=== PATIENT | male | born 1930 | race Caucasian/White ===

== ENCOUNTER 2021-07-09 11:42 | Inpatient (IN) ==
[2021-07-09] MEDS: D5 1/2 NS 1,000 ML 1,000 ML IV SCH (12:30)
[2021-07-09 13:54] LABS: BASOPHILS # (AUTO) 0.2 X10^3/uL (0.0-0.1); BASOPHILS % (AUTO) 1.3 % (0.2-1.0); EOSINOPHILS # (AUTO) 0.9 x10^3/uL (0.0-0.2); EOSINOPHILS % (AUTO) 6.1 % (0.9-2.9); HEMATOCRIT 46.6 % (42.0-54.0); HEMOGLOBIN 15.6 g/dL (13.5-18.0); LYMPHOCYTES # (AUTO) 1.9 X10^3/uL (1.3-2.9); LYMPHOCYTES % (AUTO) 13.1 % (21.0-51.0); MEAN CORPUSCULAR HEMOGLOBIN 27.2 pg (27.0-34.0); MEAN CORPUSCULAR HGB CONC 33.4 g/dL (33.0-35.0); MEAN CORPUSCULAR VOLUME 81.3 fL (80.0-100.0); MONOCYTES # (AUTO) 0.9 x10^3/uL (0.3-0.8); MONOCYTES % (AUTO) 6.4 % (0.0-13.0); NEUTROPHILS # (AUTO) 10.6 x10^3/uL (2.2-4.8); NEUTROPHILS % (AUTO) 73.1 % (42.0-75.0); RED BLOOD COUNT 5.73 X10^6/uL (4.7-6.0); RED CELL DISTRIBUTION WIDTH 17.2 % (11.6-16.5); WHITE BLOOD COUNT 14.4 X10^3/uL (3.6-10.0)
[2021-07-09 14:11] LABS: ALANINE AMINOTRANSFERASE 84 Units/L (12-78); ALBUMIN 2.3 g/dL (3.4-5.0); ALKALINE PHOSPHATASE 145 Units/L (46-116); ASPARTATE AMINO TRANSFERASE 39 Units/L (15-37); BLOOD UREA NITROGEN 19 mg/dL (7-18); CALCIUM 9.2 mg/dL (8.5-10.1); CARBON DIOXIDE 26.1 mmol/L (21-32); CHLORIDE 105 mmol/L (98-107); COR CA(FOR HYPOALB) 10.6 mg/dL (8.5-10.1); CREATININE 1.59 mg/dL (0.70-1.30); SODIUM 139 mmol/L (136-145); TOTAL PROTEIN 6.5 g/dL (6.4-8.2); eGFR NON BLACK RACES 44 (>60)
[2021-07-09 14:34] VITALS: BMI 25.1
--- NOTE | 2021-07-09 15:56 | RAD ---
HISTORYPain blockageSTUDYAbdomen series with PA chest three viewsCOMPARISONChest 03/11/2019FINDINGSUpright chest: Heart size normal with lungs clear of active process. Retrocardiac density probable hiatal hernia. No evidence for pneumoperitoneum.Abdomen: Supine and upright views demonstrate no definite obstruction, focal ileus or pneumoperitoneum. The retroperitoneal structures are obscured. No mass formation or ascites or pathologic calcification demonstrated.IMPRESSIONNo acute findings. Retrocardiac opacity most likely hiatal hernia; however, follow-up chest exam recommended to evaluate for possible segmental left lower lobe infiltrate.Electronically signed by: ANURAG COLON (Jul 09, 2021 15:55:15)
[2021-07-09] MEDS ORDERED: FORTAZ or TAZICEF VIAL INJ 1 G in NS 100 ML IV 100 ML IV SCH (18:00)
--- NOTE | 2021-07-09 18:21 | CT ---
HISTORYLEFT LUNG INFILTRATE, RETROCARDIAC DENSITY ON CXRSTUDYCHEST W/O CONCOMPARISONCT abdomen pelvis same dayTECHNIQUEMultiple axial images of the chest were obtained from the thoracic inlet to the upper abdomen without the administration of IV contrast. 3D reconstructions utilizing axial MIPS imaging was performed and reviewed. Dose reduction techniques including Automated Exposure Control (AEC) and adjustment of mA and kV were utilized.FINDINGSNo pneumothorax or effusion. No acute airspace disease. Hypoventilatory changes in the lungs.Mild cardiomegaly. Coronary and aortic calcifications. 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 Moderate hiatal hernia.No acute osseous abnormality. Multilevel degenerative changes in the visualized spine.Limited visualized portions of the upper abdomen demonstrate no acute process.IMPRESSIONNo acute findings in the chest.Moderate hiatal hernia.Electronically signed by: CAIO TRUJILLO (Jul 09, 2021 18:20:54)
--- NOTE | 2021-07-09 18:25 | DR.H&P ---
H&P History & Physical for Day of: H&P Date: 07/09/21 Chief Complaint Chief Complaint: Abdominal pain Allergies Allergies Allergy/AdvReac Type Severity Reaction Status Date / Time Penicillins Allergy Verified 07/09/21 13:12 History of Present Illness History of Present Illness: This is a 89-year-old white male well known to me. He has been having increasing constipation over the last few weeks and months. It has gotten worse over the last 2 weeks. I have given him milk of magnesia with Dulcolax tablets to help relieve his constipation. 2 days ago he was given magnesium citrate in which he had a good bowel movement afterwards. I saw him yesterday and he was eating and drinking some and his abdomen was soft and nontender at that time. But since yesterday he has woken up this morning with abdominal distention and pain and tightness. He is not able to drink or eat at this time. Overall he feels very bad and weak he reports. Auscultation of his abdomen reveals low to no bowel sounds. I have ordered him a soapsuds enema. Also a abdominal series as well. The abdominal series is back and shows no intra-abdominal problems or signs of constipation but it does however show a left lower lung infiltrate consistent with probable pneumonia. Is also noted I have recently treated him for 2 COPD exacerbation's with Levaquin and by mouth prednisone taper packs for the last 20 days. He reports he got slightly better for a few days and his cough and chest congestion returned as well. He is also noted to be hypoxic upon entry to the hospital with SPO2 of 92% on room air. 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 Past Surgical History Surgical History: Tonsillectomy Family History Family Medical History: Cancer, MS and Sudden Cardiac Social History Does patient currently use any type of tobacco product: No Have you used tobacco products in the last 12 months: No Type of Tobacco Use: None Does any household member use tobacco: No Alcohol Use: None Drug Use: None Medications Home Medications: Penicillins Allergy (Verified 07/09/21 13:12) CONTINUE taking the following medications aspirin [Aspir-81] 81 mg PO DAILY 07/09/21 [History] cholecalciferol (vitamin D3) [Vitamin D3] 50 mcg PO DAILY 07/09/21 [History] clopidogrel [Plavix] 75 mg PO DAILY 07/09/21 [History] fexofenadine 180 mg PO DAILY 07/09/21 [History] latanoprost [Xalatan] 1 drp OPHTHALMIC (EYE) HS 07/09/21 [History] levothyroxine [Synthroid] 112 mcg PO DAILY 07/09/21 [History] linaclotide [Linzess] 145 mcg PO DAILY 07/09/21 [History] montelukast [Singulair] 10 mg PO HS 07/09/21 [History] prednisone 5 mg PO DAILY 07/09/21 [History] rosuvastatin [Crestor] 20 mg PO HS 07/09/21 [History] Labs Result Diagrams: 07/09/21 13:45 07/09/21 13:45 Labs: Laboratory WBC 14.4 X10^3/uL (3.6-10.0) H 07/09/21 13:45 RBC 5.73 X10^6/uL (4.7-6.0) 07/09/21 13:45 Hgb 15.6 g/dL (13.5-18.0) 07/09/21 13:45 Hct 46.6 % (42.0-54.0) 07/09/21 13:45 MCV 81.3 fL (80.0-100.0) 07/09/21 13:45 MCH 27.2 pg (27.0-34.0) 07/09/21 13:45 MCHC 33.4 g/dL (33.0-35.0) 07/09/21 13:45 RDW 17.2 % (11.6-16.5) H 07/09/21 13:45 Plt Count 181 X10^3/uL (150.0-450.0) 07/09/21 13:45 MPV 8.0 fL (7.4-11.0) 07/09/21 13:45 Neut % (Auto) 73.1 % (42.0-75.0) 07/09/21 13:45 Lymph % (Auto) 13.1 % (21.0-51.0) L 07/09/21 13:45 [place] % (Auto) 6.4 % (0.0-13.0) 07/09/21 13:45 Eos % (Auto) 6.1 % (0.9-2.9) H 07/09/21 13:45 Baso % (Auto) 1.3 % (0.2-1.0) H 07/09/21 13:45 Neut # (Auto) 10.6 x10^3/uL (2.2-4.8) H 07/09/21 13:45 Lymph # (Auto) 1.9 X10^3/uL (1.3-2.9) 07/09/21 13:45 [place] # (Auto) 0.9 x10^3/uL (0.3-0.8) H 07/09/21 13:45 Eos # (Auto) 0.9 x10^3/uL (0.0-0.2) H 07/09/21 13:45 Baso # (Auto) 0.2 X10^3/uL (0.0-0.1) H 07/09/21 13:45 Absolute Nucleated RBC 0.1 /100WBC 07/09/21 13:45 Sodium 139 mmol/L (136-145) 07/09/21 13:45 Corrected Sodium TNP 07/09/21 13:45 Potassium 4.2 mmol/L (3.5-5.1) 07/09/21 13:45 Chloride 105 mmol/L (98-107) 07/09/21 13:45 Carbon Dioxide 26.1 mmol/L (21-32) 07/09/21 13:45 BUN 19 mg/dL (7-18) H 07/09/21 13:45 Creatinine 1.59 mg/dL (0.70-1.30) H 07/09/21 13:45 Est GFR (MDRD) Af Amer 53 (>60) L 07/09/21 13:45 Est GFR (MDRD) Non-Af 44 (>60) L 07/09/21 13:45 Glucose 107 mg/dL (65-99) H 07/09/21 13:45 Calcium 9.2 mg/dL (8.5-10.1) 07/09/21 13:45 Corrected Calcium 10.6 mg/dL (8.5-10.1) H 07/09/21 13:45 Total Bilirubin 1.30 mg/dL (0.2-1.0) H 07/09/21 13:45 AST 39 Units/L (15-37) H 07/09/21 13:45 ALT 84 Units/L (12-78) H 07/09/21 13:45 Alkaline Phosphatase 145 Units/L (46-116) H 07/09/21 13:45 Total Protein 6.5 g/dL (6.4-8.2) 07/09/21 13:45 Albumin 2.3 g/dL (3.4-5.0) L 07/09/21 13:45 Globulin 4.2 g/dL (2.5-4.5) 07/09/21 13:45 Albumin/Globulin Ratio 0.5 Ratio (1.1-2.1) L 07/09/21 13:45 SARS-CoV-2 (PCR) Negative (NEGATIVE) 07/09/21 13:20 Review of Systems Constitutional: Weakness and Other (Anorexia) Eyes: No Symptoms Reported ENT: Nose Discharge and Nose Congestion Respiratory: Cough, SOB with Excertion and Sputum Cardiovascular: No Symptoms Reported Gastrointestinal: Constipation Genitourinary: No Symptoms Reported Musculoskeletal: No Symptoms Reported Skin: No Symptoms Reported Neurological: No Symptoms Reported Physical Exam Vital Signs: Temperature 99.2 F Pulse Rate [Bilateral Radial] 97 Respiratory Rate 18 Blood Pressure [Right Arm] 123/74 O2 Sat by Pulse Oximetry 92 Oriented: Normal, Time, Person and Place Eyes: Normal Ear: Normal Nose: Normal Throat: Normal Respiratory: LLL Diminished and LLL Rhonchi Cardiovascular: Normal : Normal Auscultation: Bowel Sounds: Decreased Palpation: Other (Abdomen is distended with diffuse tympany and generalized tenderness to palpation.) Tenderness: Diffuse Skin: Decreased Turgur and Bruising Musculoskeletal: Normal Psychiatric: Normal Mood Description: Calm Affect: Normal Speech Pattern: Clear and Appropriate Assessment/Plan (1) Abdominal pain: Status: Acute Plan: Soapsuds enema to see if getting his bowels to move will relieve his abdominal distention and pain. I suspect that the patient is most likely impacted with stool. (2) Constipation, chronic: Status: Acute Plan: Continue Linzess 145 mcg by mouth daily. Consider increasing the dose tomorrow. (3) Impaction of colon: Status: Acute Plan: Soapsuds enema 1. May repeat tomorrow morning if his bowels do not start moving on his own. (4) Community acquired pneumonia: Status: Acute Plan: I started him on protocol on the patient. I put him on IV Fortaz 1 g IV every 8 hours as well as Vibramycin 100 mg IV every 12 hours. (5) COPD with asthma: Status: Acute Plan: Xopenex nebs. I may consider adding DuoNeb's tomorrow morning and stop the Xopenex if his O2 sat remains low. I will add Symbicort 160/4.5 2 puffs twice a day. (6) Hypothyroidism: Status: Acute Plan: Continue on levothyroxine 112 mcg daily. 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 Also continue Crestor 20 mg by mouth daily at bedtime. Review H&P Reviewed: Yes Patient was examined?: Yes
[2021-07-09] MEDS ORDERED: XOPENEX 1.25 MG/3 ML NEBULE NEB ONE (19:55)
--- NOTE | 2021-07-09 20:17 | CT ---
HISTORYABD PAIN, DISCOMFORTSTUDYABDOMEN/PELVIS WITH CONCOMPARISONTECHNIQUEMultiple axial images of the abdomen and pelvis were obtained from the lung bases to the pubic symphysis after the administration of IV contrast. Dose reduction techniques including Automated Exposure Control (AEC) and adjustment of mA and kV were utilized.FINDINGSThere is bronchial wall thickening. There is dependent basilar atelectasis or scarring. Heart size is normal. There is ectasia the ascending aorta at 4.3 centimeter diameter. There appears to be a pulmonary embolus in the right lower lobe. There is a low-density lesion near the gallbladder fossa which is probably a benign cyst. The gallbladder, pancreas, spleen, adrenal glands are normal. There is some mild cortical thinning in the kidneys but no mass, stone, or hydronephrosis. There is moderate systemic atherosclerosis. There is a large hiatal hernia. Small bowel loops are normal. Appendix is normal. There is fairly severe diverticulosis of the colon especially distally. There is diverticulitis in the descending colon but no abscess or free air. There is a extension of the urinary bladder into the left inguinal canal. There are fat containing inguinal hernias bilaterally. There is a loop of small bowel extending into the right inguinal hernia. Prostate gland is enlarged at 6.7 centimeter in diameter there is an exophytic cephalad extension into the gallbladder which measures up to 2.1 x 3.4 centimeters. There is no worrisome bone marrow lesion.IMPRESSION1. There is acute DIVERTICULITIS in the descending colon with no abscess or free air. There is fairly severe diffuse diverticulosis in the distal colon.2. Large hiatal hernia.3. Massive prostate hypertrophy with exophytic protrudes extending cephalad into the bladder. Consider referral to Urology.4. There appears to be PULMONARY EMBOLUS in the right lower lobe.Electronically signed by: Danial Keenan (Jul 09, 2021 20:16:49)
[2021-07-09] MEDS: XOPENEX 1.25 MG/3 ML NEBULE NEB SCH (21:34)
[2021-07-09] MEDS: XALATAN OP SCH (22:15)
[2021-07-09] MEDS: VIBRAMYCIN 100 MG in D5W 250 ML IV 250 ML IV SCH (22:16)
[2021-07-09] MEDS: ROBITUSSIN DM PO SCH (22:20)
[2021-07-09] MEDS: SINGULAIR TAB 10 MG PO SCH (22:20)
[2021-07-09] MEDS: CRESTOR TAB 10 MG PO SCH (22:20)
[2021-07-10] MEDS: FORTAZ or TAZICEF VIAL INJ 1 G in NS 100 ML IV 100 ML IV SCH ×5 (00:12→22:41)
[2021-07-10 00:38] LABS: BILIRUBIN,URINE NEGATIVE (NEGATIVE); BLOOD/HEMOGLOBIN,URINE 1+ (NEGATIVE); GLUCOSE, URINE NEGATIVE (NEGATIVE); KETONES,URINE NEGATIVE (NEGATIVE); LEUKOCYTE ESTERASE ,URINE 1+ (NEGATIVE); NITRITES,URINE NEGATIVE (NEGATIVE); PROTEIN,URINE 2+ (NEGATIVE); UROBILINOGEN,URINE 2+ (NORMAL)
[2021-07-10 00:40] LABS: APPEARANCE,URINE CLEAR (CLEAR); COLOR,URINE DARK YELLOW (YELLOW)
[2021-07-10 00:48] LABS: BACTERIA,URINE 1+ /HPF (NEGATIVE); RBC,URINE 0-2 /HPF (0-3); SQUAMOUS EPITHELIAL CELL,UR RARE /HPF (NEGATIVE)
[2021-07-10] MEDS: D5 1/2 NS 1,000 ML 1,000 ML IV SCH ×3 (04:39→18:18)
[2021-07-10 05:27] LABS: BASOPHILS # (AUTO) 0.1 X10^3/uL (0.0-0.1); BASOPHILS % (AUTO) 0.6 % (0.2-1.0); EOSINOPHILS # (AUTO) 0.9 x10^3/uL (0.0-0.2); MONOCYTES # (AUTO) 0.9 x10^3/uL (0.3-0.8); NEUTROPHILS # (AUTO) 9.9 x10^3/uL (2.2-4.8)
[2021-07-10 05:33] LABS: EOSINOPHILS % (AUTO) 7.2 % (0.9-2.9); HEMATOCRIT 38.4 % (42.0-54.0); HEMOGLOBIN 13.1 g/dL (13.5-18.0); LYMPHOCYTES # (AUTO) 1.2 X10^3/uL (1.3-2.9); LYMPHOCYTES % (AUTO) 9.2 % (21.0-51.0); MEAN CORPUSCULAR HEMOGLOBIN 27.5 pg (27.0-34.0); MEAN CORPUSCULAR HGB CONC 34.1 g/dL (33.0-35.0); MEAN CORPUSCULAR VOLUME 80.5 fL (80.0-100.0); RED BLOOD COUNT 4.77 X10^6/uL (4.7-6.0); RED CELL DISTRIBUTION WIDTH 16.9 % (11.6-16.5)
[2021-07-10 05:39] LABS: ALANINE AMINOTRANSFERASE 65 Units/L (12-78); ALBUMIN 1.9 g/dL (3.4-5.0); ALKALINE PHOSPHATASE 120 Units/L (46-116); ASPARTATE AMINO TRANSFERASE 37 Units/L (15-37); BLOOD UREA NITROGEN 15 mg/dL (7-18); CALCIUM 8.3 mg/dL (8.5-10.1); CARBON DIOXIDE 26.4 mmol/L (21-32); CHLORIDE 104 mmol/L (98-107); CREATININE 1.31 mg/dL (0.70-1.30); SODIUM 137 mmol/L (136-145); TOTAL PROTEIN 5.3 g/dL (6.4-8.2); eGFR NON BLACK RACES 55 (>60)
[2021-07-10] MEDS: XOPENEX 1.25 MG/3 ML NEBULE NEB SCH ×3 (06:06→21:42)
--- NOTE | 2021-07-10 07:32 | RAD ---
HISTORYPNEUMONIASTUDYCHEST, 1 VIEWCOMPARISONNone availableFINDINGSTrachea is midline. Heart size is borderline enlarged. There is increased prominence of the pulmonary arteries and upper lobe vascular congestion consistent with combination of pulmonary arterial and venous hypertension. Patchy consolidation within the retrocardiac left lower lobe represents subsegmental atelectasis or developing infiltrate. No pleural effusion or pneumothorax.IMPRESSIONPatchy consolidation within the retrocardiac left lower lobe represents developing infiltrate or subsegmental atelectasis.Borderline cardiomegaly with radiographic evidence suggestive of pulmonary arterial and venous hypertension.Electronically signed by: PRABHAKAR CAVANAUGH (Jul 10, 2021 07:32:14)
[2021-07-10] MEDS ORDERED: LINZESS PO SCH (09:00)
[2021-07-10] MEDS ORDERED: ASPIRIN EC 81 MG PO SCH (09:00)
[2021-07-10] MEDS ORDERED: [UNRECOGNIZED DRUG - OTHER] PO SCH (09:00)
[2021-07-10] MEDS ORDERED: SYNTHROID 112 mcg TAB PO SCH (09:00)
[2021-07-10] MEDS ORDERED: CHOLECALCIFEROL PO SCH (09:00)
[2021-07-10] MEDS: VIBRAMYCIN 100 MG in D5W 250 ML IV 250 ML IV SCH ×2 (09:54→23:54)
[2021-07-10] MEDS: ROBITUSSIN DM PO SCH ×4 (09:54→21:04)
[2021-07-10] MEDS: COLACE CAP 100 MG PO SCH ×2 (10:06→21:04)
[2021-07-10] MEDS: FLAGYL IV PREMIX 500 MG BAG 500 MG/100 ML BAG IV SCH ×2 (10:06→18:17)
[2021-07-10] MEDS: CIPRO IV 400 MG PREMIX* 400 MG/200 ML IV.SOLN. IV SCH ×2 (10:06→21:02)
[2021-07-10] MEDS: VITAMIN D3 25 mcg (1,000 UNITS) PO SCH (10:07)
[2021-07-10] MEDS: PREDNISONE TAB 5 MG PO SCH (10:07)
[2021-07-10] MEDS: PLAVIX PO SCH (10:07)
--- NOTE | 2021-07-10 11:11 | CT ---
HISTORYabnormal chest xraySTUDYCTA [id number]/29/2022TECHNIQUEMultip le axial images of the chest were obtained from the thoracic inlet to the upper abdomen after the administration of IV contrast. 3D reconstructions utilizing axial MIPS imaging was performed and reviewed. Dose reduction techniques including Automated Exposure Control (AEC) and adjustment of mA and kV were utilized.FINDINGSMain pulmonary arteries normal caliber. There is pulmonary thromboembolic disease noted within the proximal right middle and lower lobe segmental arteries extending into the system branches of the right middle and lower lobes. No thromboembolic disease identified within the left pulmonary arterial circulation.Thyroid gland is normal. Heart size is normal. Moderate calcified atherosclerotic disease of coronary arteries. Calcification of the mitral and aortic valves. Borderline enlarged bilateral hilar and right paratracheal lymph nodes.Moderate-sized hiatal hernia.An approximate 5 mm pulmonary nodule within right upper lobe on axial image 30. Peripheral, dependent reticulation is noted within the right and to lesser degree left lower lobes. There is passive atelectasis of the left lower lobe secondary to hiatal hernia. No pleural effusion or pneumothorax.Imaging of the upper abdomen demonstrates no acute inflammatory process.No acute osseous abnormality.IMPRESSIONRight middle and lower lobe segmental and subsegmental pulmonary thromboemboli. No right ventricular heart strain or pulmonary arterial dilatation.Moderate-sized sliding hiatal hernia with fluid distention of the herniated stomach.Borderline enlarged paratracheal and bilateral hilar lymph nodes.5 mm pulmonary nodule within the right upper lobeRecommend correlation with prior exams if available to confirm stability. Otherwise, if patient is at low risk for lung cancer, no further follow up needed; if patient is at high risk for lung cancer, optional followup CT at 12 months.Mild increased reticulation within the periphery of the right and left lower lobes likely represents sequela of chronic bronchiolitis and/or aspiration.Additional incidental, nonacute findings as described aboveElectronically signed by: PRABHAKAR CAVANAUGH (Jul 10, 2021 11:11:44)
--- NOTE | 2021-07-10 12:19 | PCM.PROG ---
Progress Note Progress Note for Day of Date of Exam: 07/10/21 Subjective Subjective: The patient is alert and awake this morning. He seems to be in good spirits today. He had supper last night and tolerated it well. After the soapsuds enema yesterday they removed a lot of hard small stool. He was feeling better afterwards. His abdominal distention has gone down and his abdomen is less tight and painful. He does continue to have left lower quadrant pain on palpation. CT yesterday show that he had acute diverticulitis as well in that region. The CT in the abdomen/pelvis scan yesterday showed what looked to be like a possible coronary embolism in the right lower lung. So I ordered a CTA of the lungs this morning and it did confirm a right middle lobe and right lower lobe segmental and subsegmental pulmonary emboli. I will start him on Eliquis 5 mg by mouth twice a day for that today. Past Medical Family Social History Past Med/Fam/Surg Hx: No changes since H&P Allergies: Allergies Penicillins Allergy (Verified 07/09/21 13:12) Review of Systems ROS: No change since H&P Vital Signs and I&O's Vital Signs: Temperature 98.3 F Pulse Rate [Bilateral Radial] 50 Pulse Rate 103 Respiratory Rate 18 Blood Pressure [Right Arm] 138/79 O2 Sat by Pulse Oximetry 96 Intake and Output: Intake & Output 07/08/21 07/09/21 07/10/21 07/11/21 11:59 11:59 11:59 11:59 Intake Total 225 / 225 Output Total 275 / 275 Balance -50 / -50 Physical Exam Oriented: Normal, Time, Person and Place Eyes: Normal Ear: Normal Nose: Normal Throat: Normal Respiratory: Left and Rhonchi Cardiovascular: Normal : Normal Auscultation: Bowel Sounds: Decreased Tenderness: LLQ and Other (Decreased tympany and abdominal distention.) Skin: Decreased Turgur and Bruising Musculoskeletal: Normal Psychiatric: Normal Mood Description: Calm Affect: Normal Speech Pattern: Clear and Appropriate Laboratory and Diagnostics Result Diagrams: 07/10/21 04:50 07/10/21 04:50 Labs: 07/09/21 18:16 Sputum - Expectorated Sputum Sputum Culture - Preliminary 07/09/21 18:16 Sputum - Expectorated Sputum - Final Laboratory WBC 13.0 X10^3/uL (3.6-10.0) H 07/10/21 04:50 RBC 4.77 X10^6/uL (4.7-6.0) 07/10/21 04:50 Hgb 13.1 g/dL (13.5-18.0) L D 07/10/21 04:50 Hct 38.4 % (42.0-54.0) L 07/10/21 04:50 MCV 80.5 fL (80.0-100.0) 07/10/21 04:50 MCH 27.5 pg (27.0-34.0) 07/10/21 04:50 MCHC 34.1 g/dL (33.0-35.0) 07/10/21 04:50 RDW 16.9 % (11.6-16.5) H 07/10/21 04:50 Plt Count 152 X10^3/uL (150.0-450.0) 07/10/21 04:50 MPV 8.0 fL (7.4-11.0) 07/10/21 04:50 Neut % (Auto) 76.0 % (42.0-75.0) H 07/10/21 04:50 Lymph % (Auto) 9.2 % (21.0-51.0) L 07/10/21 04:50 [place] % (Auto) 7.0 % (0.0-13.0) 07/10/21 04:50 Eos % (Auto) 7.2 % (0.9-2.9) H 07/10/21 04:50 Baso % (Auto) 0.6 % (0.2-1.0) 07/10/21 04:50 Neut # (Auto) 9.9 x10^3/uL (2.2-4.8) H 07/10/21 04:50 Lymph # (Auto) 1.2 X10^3/uL (1.3-2.9) L 07/10/21 04:50 [place] # (Auto) 0.9 x10^3/uL (0.3-0.8) H 07/10/21 04:50 Eos # (Auto) 0.9 x10^3/uL (0.0-0.2) H 07/10/21 04:50 Baso # (Auto) 0.1 X10^3/uL (0.0-0.1) 07/10/21 04:50 Absolute Nucleated RBC 0.1 /100WBC 07/10/21 04:50 Sodium 137 mmol/L (136-145) 07/10/21 04:50 Corrected Sodium TNP 07/10/21 04:50 Potassium 3.6 mmol/L (3.5-5.1) 07/10/21 04:50 Chloride 104 mmol/L (98-107) 07/10/21 04:50 Carbon Dioxide 26.4 mmol/L (21-32) 07/10/21 04:50 BUN 15 mg/dL (7-18) 07/10/21 04:50 Creatinine 1.31 mg/dL (0.70-1.30) H 07/10/21 04:50 Est GFR (MDRD) Af Amer > 60 (>60) 07/10/21 04:50 Est GFR (MDRD) Non-Af 55 (>60) L 07/10/21 04:50 Glucose 105 mg/dL (65-99) H 07/10/21 04:50 Calcium 8.3 mg/dL (8.5-10.1) L 07/10/21 04:50 Corrected Calcium 10.0 mg/dL (8.5-10.1) 07/10/21 04:50 Total Bilirubin 1.10 mg/dL (0.2-1.0) H 07/10/21 04:50 AST 37 Units/L (15-37) 07/10/21 04:50 ALT 65 Units/L (12-78) 07/10/21 04:50 Alkaline Phosphatase 120 Units/L (46-116) H 07/10/21 04:50 Total Protein 5.3 g/dL (6.4-8.2) L 07/10/21 04:50 Albumin 1.9 g/dL (3.4-5.0) L 07/10/21 04:50 Globulin 3.4 g/dL (2.5-4.5) 07/10/21 04:50 Albumin/Globulin Ratio 0.6 Ratio (1.1-2.1) L 07/10/21 04:50 TSH 3rd Generation 0.066 uIU/mL (0.358-3.74) L 07/09/21 13:45 Specimen Type Clean catch urine 07/10/21 00:09 Urine Color Dark yellow (YELLOW) 07/10/21 00:09 Urine Appearance Clear (CLEAR) 07/10/21 00:09 Urine pH 7.0 (5.0 - 8.0) 07/10/21 00:09 Ur Specific [place] 1.005 (1.000-1.030) 07/10/21 00:09 Urine Protein 2+ (NEGATIVE) 07/10/21 00:09 Urine Glucose (UA) Negative (NEGATIVE) 07/10/21 00:09 Urine Ketones Negative (NEGATIVE) 07/10/21 00:09 Urine Blood 1+ (NEGATIVE) 07/10/21 00:09 Urine Nitrite Negative (NEGATIVE) 07/10/21 00:09 Urine Bilirubin Negative (NEGATIVE) 07/10/21 00:09 Urine Urobilinogen 2+ (NORMAL) 07/10/21 00:09 Ur Leukocyte Esterase 1+ (NEGATIVE) 07/10/21 00:09 Urine RBC 0-2 /HPF (0-3) 07/10/21 00:09 Urine WBC 0-2 /HPF (0-5) 07/10/21 00:09 Ur Squamous Epith Cells Rare /HPF (NEGATIVE) 07/10/21 00:09 Urine Bacteria 1+ /HPF (NEGATIVE) 07/10/21 00:09 Ur Culture Indicated? No/not indicated 07/10/21 00:09 SARS-CoV-2 (PCR) Negative (NEGATIVE) 07/09/21 13:20 Radiology Reviewed: Yes Plan (1) Diverticulitis large intestine w/o perforation or abscess w/o bleeding: Status: Acute Plan: CT of the abdomen and pelvis yesterday revealed that he has acute diverticulitis of the descending colon. I will be adding IV Cipro and IV Flagyl today. (2) Abdominal pain: Status: Acute Plan: Soapsuds enema to see if getting his bowels to move will relieve his abdominal distention and pain. I suspect that the patient is most likely impacted with stool. (3) Constipation, chronic: Status: Acute Plan: Continue Linzess 145 mcg by mouth daily. I will add Colace 100 mg by mouth twice a day. (4) Impaction of colon: Status: Acute Plan: Soapsuds enema 1. May repeat tomorrow morning if his bowels do not start moving on his own. (5) Community acquired pneumonia: Status: Acute Plan: I started him on protocol on the patient. I put him on IV Fortaz 1 g IV every 8 hours as well as Vibramycin 100 mg IV every 12 hours. (6) COPD with asthma: Status: Acute Plan: Xopenex nebs. I may consider adding DuoNeb's tomorrow morning and stop the Xopenex if his O2 sat remains low. I will add Symbicort 160/4.5 2 puffs twice a day. (7) Hypothyroidism: Status: Acute Plan: Continue on levothyroxine 112 mcg daily. 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 Also continue Crestor 20 mg by mouth daily at bedtime. (9) Pulmonary embolism on right: Status: Acute Plan: *Eliquis 5 mg by mouth twice a day. (10) Iatrogenic hyperthyroidism: Status: Acute Plan: We will decrease the patient's Synthroid dose down to 88 mcg daily from 112 mcg daily. (11) Prostate cancer: Status: Acute Plan: CT scan showed the prostate was enlarged and had exophytic growths on it towards the bladder and towards the cephalad position. 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 The patient has had a history of arteriovenous malformation bleeding in the past. I will go ahead and DC his baby aspirin today since he is already taking Plavix. (13) Dehydration, mild: Status: Acute Narrative Support Text: Creatinine is down from 1.59 yesterday to 1.31 this morning. Patient is dehydration is overall improving. Plan: The patient was noted to have a slightly elevated BUN and creatinine yesterday on admission. I started him on D5 one half normal saline at 75 cc an hour. Overall is improved morning with a normalized BUN and creatinine now of 1.31.
[2021-07-10] MEDS: ELIQUIS PO SCH ×2 (12:50→21:05)
[2021-07-10] MEDS ORDERED: POTASSIUM CHL 40 MEQ/NS 0.45% 500 ML IV PRN (18:16)
[2021-07-10] MEDS ORDERED: POTASSIUM CHL 60 MEQ/NS 0.45% 500 ML IV PRN (18:16)
[2021-07-10] MEDS ORDERED: KLOR-CON PO PRN (18:16)
[2021-07-10] MEDS ORDERED: MICRO K EXTEN CAP 10 MEQ PO PRN (18:16)
[2021-07-10] MEDS ORDERED: K-RIDER 10 MEQ/NS 100 ML 10 MEQ/100 ML BAG IV PRN (18:16)
[2021-07-10] MEDS ORDERED: POTASSIUM CHLORIDE LIQ 20 MEQ UDC PO PRN (18:16)
[2021-07-10] MEDS: SINGULAIR TAB 10 MG PO SCH (21:04)
[2021-07-10] MEDS: CRESTOR TAB 10 MG PO SCH (21:04)
[2021-07-10] MEDS: XALATAN OP SCH (21:05)
[2021-07-11] MEDS: FLAGYL IV PREMIX 500 MG BAG 500 MG/100 ML BAG IV SCH ×3 (02:31→17:11)
[2021-07-11] MEDS: D5 1/2 NS 1,000 ML 1,000 ML IV SCH ×2 (03:48→17:11)
[2021-07-11 05:05] LABS: BASOPHILS # (AUTO) 0.1 X10^3/uL (0.0-0.1); BASOPHILS % (AUTO) 0.4 % (0.2-1.0); EOSINOPHILS # (AUTO) 0.5 x10^3/uL (0.0-0.2); EOSINOPHILS % (AUTO) 3.5 % (0.9-2.9); HEMATOCRIT 36.3 % (42.0-54.0); HEMOGLOBIN 12.1 g/dL (13.5-18.0); LYMPHOCYTES # (AUTO) 1.2 X10^3/uL (1.3-2.9); LYMPHOCYTES % (AUTO) 8.7 % (21.0-51.0); MEAN CORPUSCULAR HGB CONC 33.3 g/dL (33.0-35.0); MEAN CORPUSCULAR VOLUME 80.9 fL (80.0-100.0); MEAN PLATELET VOLUME 8.1 fL (7.4-11.0); MONOCYTES # (AUTO) 0.8 x10^3/uL (0.3-0.8); MONOCYTES % (AUTO) 6.2 % (0.0-13.0); NEUTROPHILS # (AUTO) 10.7 x10^3/uL (2.2-4.8); NEUTROPHILS % (AUTO) 81.2 % (42.0-75.0); RED BLOOD COUNT 4.49 X10^6/uL (4.7-6.0); RED CELL DISTRIBUTION WIDTH 16.4 % (11.6-16.5); WHITE BLOOD COUNT 13.2 X10^3/uL (3.6-10.0)
[2021-07-11 05:07] LABS: ALANINE AMINOTRANSFERASE 54 Units/L (12-78); ALBUMIN 1.7 g/dL (3.4-5.0); ALKALINE PHOSPHATASE 113 Units/L (46-116); ASPARTATE AMINO TRANSFERASE 33 Units/L (15-37); BLOOD UREA NITROGEN 13 mg/dL (7-18); CALCIUM 8.2 mg/dL (8.5-10.1); CARBON DIOXIDE 24.2 mmol/L (21-32); CHLORIDE 105 mmol/L (98-107); MAGNESIUM 1.6 mg/dL (1.7-2.9); SODIUM 136 mmol/L (136-145); TOTAL PROTEIN 5.2 g/dL (6.4-8.2); eGFR NON BLACK RACES 55 (>60)
[2021-07-11] MEDS: XOPENEX 1.25 MG/3 ML NEBULE NEB SCH ×3 (06:00→20:13)
[2021-07-11] MEDS: FORTAZ or TAZICEF VIAL INJ 1 G in NS 100 ML IV 100 ML IV SCH ×3 (06:01→22:40)
[2021-07-11] MEDS: SYNTHROID 88 mcg TAB PO SCH (06:01)
[2021-07-11] MEDS: K-DUR TAB 20 MEQ PO PRN (06:02)
--- NOTE | 2021-07-11 06:37 | RAD ---
HISTORYPNEUMONIASTUDYCHEST, 1 VIEWCOMPARISONNone availableFINDINGSStable examination demonstrate coarsened interstitium with more prominent appearance hiatal hernia. Subsegmental atelectasis within left lung base. No new opacity, pleural effusion or pneumothoraxIMPRESSIONStable examination without acute cardiopulmonary abnormality.Moderate-sized hiatal hernia.Electronically signed by: PRABHAKAR CAVANAUGH (July 11, 2021 06:36:30)
[2021-07-11] MEDS ORDERED: SYNTHROID 112 mcg TAB PO SCH (09:00)
[2021-07-11] MEDS: CIPRO IV 400 MG PREMIX* 400 MG/200 ML IV.SOLN. IV SCH ×2 (09:24→21:06)
[2021-07-11] MEDS: VITAMIN D3 25 mcg (1,000 UNITS) PO SCH (09:25)
[2021-07-11] MEDS: VIBRAMYCIN 100 MG in D5W 250 ML IV 250 ML IV SCH ×2 (09:25→23:37)
[2021-07-11] MEDS: PLAVIX PO SCH (09:26)
[2021-07-11] MEDS: LINZESS PO SCH (09:26)
[2021-07-11] MEDS: PREDNISONE TAB 5 MG PO SCH (09:26)
[2021-07-11] MEDS: ROBITUSSIN DM PO SCH ×4 (09:26→21:07)
[2021-07-11] MEDS: COLACE CAP 100 MG PO SCH ×2 (09:27→21:06)
[2021-07-11] MEDS: ELIQUIS PO SCH (09:27)
[2021-07-11] MEDS: SPECTAZOLE TOP SCH ×2 (11:16→21:08)
[2021-07-11] MEDS: PriLOSEC PO SCH ×2 (11:16→21:07)
[2021-07-11] MEDS: MAGNESIUM SULFATE 1 GRAM/100 mL PREMIX 1 G/100 ML BAG IV PRN (18:20)
--- NOTE | 2021-07-11 20:43 | PCM.PROG ---
Progress Note Progress Note for Day of Date of Exam: 07/11/21 Subjective Subjective: The patient is alert and awake this morning. He seems to be in good spirits today. He has no new complaints this morning. His breathing is overall improved he reports and he is still having some left lower quadrant abdominal pain but is improved as well. He is having bowel movements on his own now without enemas. This afternoon he did develop a nosebleed so we stopped his anticoagulation because of that. We had enough packing his nose because the bleeding would not stop. We will reevaluate the patient for this in the morning. It is noted he has low magnesium and potassium this morning as well. Past Medical Family Social History Past Med/Fam/Surg Hx: No changes since H&P Allergies: Allergies Penicillins Allergy (Verified 07/09/21 13:12) Review of Systems ROS: No change since H&P Vital Signs and I&O's Vital Signs: Temperature 97.3 F Pulse Rate [Bilateral Radial] 66 Pulse Rate 89 Respiratory Rate 20 Blood Pressure [Right Arm] 118/68 O2 Sat by Pulse Oximetry 94 Intake and Output: Intake & Output 07/09/21 07/10/21 07/11/21 07/12/21 11:59 11:59 11:59 11:59 Intake Total 225 / 225 2019 / 2019 1290 / 1290 Output Total 275 / 275 250 / 250 775 / 775 Balance -50 / -50 1770 / 1770 515 / 515 Physical Exam Oriented: Normal, Time, Person and Place Eyes: Normal Ear: Normal Nose: Normal Throat: Normal Respiratory: Left and Rhonchi Cardiovascular: Normal : Normal Auscultation: Bowel Sounds: Decreased Tenderness: LLQ and Other (Decreased tympany and abdominal distention.) Skin: Decreased Turgur and Bruising Musculoskeletal: Normal Psychiatric: Normal Mood Description: Calm Affect: Normal Speech Pattern: Clear and Appropriate Laboratory and Diagnostics Result Diagrams: 07/11/21 03:59 07/11/21 03:59 Labs: 07/09/21 18:31 Blood Blood Culture - Preliminary 07/09/21 18:27 Blood Blood Culture - Preliminary 07/09/21 18:16 Sputum - Expectorated Sputum Sputum Culture - Preliminary 07/09/21 18:16 Sputum - Expectorated Sputum - Final Laboratory WBC 13.2 X10^3/uL (3.6-10.0) H 07/11/21 03:59 RBC 4.49 X10^6/uL (4.7-6.0) L 07/11/21 03:59 Hgb 12.1 g/dL (13.5-18.0) L 07/11/21 03:59 Hct 36.3 % (42.0-54.0) L 07/11/21 03:59 MCV 80.9 fL (80.0-100.0) 07/11/21 03:59 MCH 27.0 pg (27.0-34.0) 07/11/21 03:59 MCHC 33.3 g/dL (33.0-35.0) 07/11/21 03:59 RDW 16.4 % (11.6-16.5) 07/11/21 03:59 Plt Count 154 X10^3/uL (150.0-450.0) 07/11/21 03:59 MPV 8.1 fL (7.4-11.0) 07/11/21 03:59 Neut % (Auto) 81.2 % (42.0-75.0) H 07/11/21 03:59 Lymph % (Auto) 8.7 % (21.0-51.0) L 07/11/21 03:59 [place] % (Auto) 6.2 % (0.0-13.0) 07/11/21 03:59 Eos % (Auto) 3.5 % (0.9-2.9) H 07/11/21 03:59 Baso % (Auto) 0.4 % (0.2-1.0) 07/11/21 03:59 Neut # (Auto) 10.7 x10^3/uL (2.2-4.8) H 07/11/21 03:59 Lymph # (Auto) 1.2 X10^3/uL (1.3-2.9) L 07/11/21 03:59 [place] # (Auto) 0.8 x10^3/uL (0.3-0.8) 07/11/21 03:59 Eos # (Auto) 0.5 x10^3/uL (0.0-0.2) H 07/11/21 03:59 Baso # (Auto) 0.1 X10^3/uL (0.0-0.1) 07/11/21 03:59 Absolute Nucleated RBC 0.0 /100WBC 07/11/21 03:59 Sodium 136 mmol/L (136-145) 07/11/21 03:59 Corrected Sodium TNP 07/11/21 03:59 Potassium 3.4 mmol/L (3.5-5.1) L 07/11/21 03:59 Chloride 105 mmol/L (98-107) 07/11/21 03:59 Carbon Dioxide 24.2 mmol/L (21-32) 07/11/21 03:59 BUN 13 mg/dL (7-18) 07/11/21 03:59 Creatinine 1.30 mg/dL (0.70-1.30) 07/11/21 03:59 Est GFR (MDRD) Af Amer > 60 (>60) 07/11/21 03:59 Est GFR (MDRD) Non-Af 55 (>60) L 07/11/21 03:59 Glucose 106 mg/dL (65-99) H 07/11/21 03:59 Calcium 8.2 mg/dL (8.5-10.1) L 07/11/21 03:59 Corrected Calcium 10.0 mg/dL (8.5-10.1) 07/11/21 03:59 Magnesium 1.6 mg/dL (1.7-2.9) L 07/11/21 03:59 Total Bilirubin 0.90 mg/dL (0.2-1.0) 07/11/21 03:59 AST 33 Units/L (15-37) 07/11/21 03:59 ALT 54 Units/L (12-78) 07/11/21 03:59 Alkaline Phosphatase 113 Units/L (46-116) 07/11/21 03:59 Total Protein 5.2 g/dL (6.4-8.2) L 07/11/21 03:59 Albumin 1.7 g/dL (3.4-5.0) L 07/11/21 03:59 Globulin 3.5 g/dL (2.5-4.5) 07/11/21 03:59 Albumin/Globulin Ratio 0.5 Ratio (1.1-2.1) L 07/11/21 03:59 TSH 3rd Generation 0.066 uIU/mL (0.358-3.74) L 07/09/21 13:45 Specimen Type Clean catch urine 07/10/21 00:09 Urine Color Dark yellow (YELLOW) 07/10/21 00:09 Urine Appearance Clear (CLEAR) 07/10/21 00:09 Urine pH 7.0 (5.0 - 8.0) 07/10/21 00:09 Ur Specific [place] 1.005 (1.000-1.030) 07/10/21 00:09 Urine Protein 2+ (NEGATIVE) 07/10/21 00:09 Urine Glucose (UA) Negative (NEGATIVE) 07/10/21 00:09 Urine Ketones Negative (NEGATIVE) 07/10/21 00:09 Urine Blood 1+ (NEGATIVE) 07/10/21 00:09 Urine Nitrite Negative (NEGATIVE) 07/10/21 00:09 Urine Bilirubin Negative (NEGATIVE) 07/10/21 00:09 Urine Urobilinogen 2+ (NORMAL) 07/10/21 00:09 Ur Leukocyte Esterase 1+ (NEGATIVE) 07/10/21 00:09 Urine RBC 0-2 /HPF (0-3) 07/10/21 00:09 Urine WBC 0-2 /HPF (0-5) 07/10/21 00:09 Ur Squamous Epith Cells Rare /HPF (NEGATIVE) 07/10/21 00:09 Urine Bacteria 1+ /HPF (NEGATIVE) 07/10/21 00:09 Ur Culture Indicated? No/not indicated 07/10/21 00:09 Stl C. diff Tox B Gene Negative (NEGATIVE) 07/11/21 18:00 Stl C. diff [id number] Presumptive negative (NEGATIVE) 07/11/21 18:00 SARS-CoV-2 (PCR) Negative (NEGATIVE) 07/09/21 13:20 Plan (1) Hypomagnesemia: Status: Acute Plan: Replace with magnesium. (2) Hypokalemia: Status: Acute Plan: Potassium replacement protocol. (3) Diverticulitis large intestine w/o perforation or abscess w/o bleeding: Status: Acute Plan: CT of the abdomen and pelvis yesterday revealed that he has acute diverticulitis of the descending colon. I will be adding IV Cipro and IV Flagyl today. (4) Abdominal pain: Status: Acute Plan: Soapsuds enema to see if getting his bowels to move will relieve his abdominal distention and pain. I suspect that the patient is most likely impacted with stool. (5) Constipation, chronic: Status: Acute Plan: Continue Linzess 145 mcg by mouth daily. I will add Colace 100 mg by mouth twice a day. (6) Impaction of colon: Status: Acute Plan: Soapsuds enema 1. May repeat tomorrow morning if his bowels do not start moving on his own. (7) Community acquired pneumonia: Status: Acute Plan: I started him on protocol on the patient. I put him on IV Fortaz 1 g IV every 8 hours as well as Vibramycin 100 mg IV every 12 hours. (8) COPD with asthma: Status: Acute Plan: Xopenex nebs. I may consider adding DuoNeb's tomorrow morning and stop the Xopenex if his O2 sat remains low. I will add Symbicort 160/4.5 2 puffs twice a day. (9) Hypothyroidism: Status: Acute Plan: Continue on levothyroxine 112 mcg daily. 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 Also continue Crestor 20 mg by mouth daily at bedtime. (11) Pulmonary embolism on right: Status: Acute Plan: *Eliquis 5 mg by mouth twice a day. 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 (13) Prostate cancer: Status: Acute Plan: CT scan showed the prostate was enlarged and had exophytic growths on it towards the bladder and towards the cephalad position. 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 The patient has had a history of arteriovenous malformation bleeding in the past. I will go ahead and DC his baby aspirin today since he is already taking Plavix. (15) Dehydration, mild: Status: Resolved Plan: Change IV fluid to KVO this morning. The patient's BUN and creatinine have normalized this morning.
[2021-07-11] MEDS: SINGULAIR TAB 10 MG PO SCH (21:07)
[2021-07-11] MEDS: CRESTOR TAB 10 MG PO SCH (21:07)
[2021-07-11] MEDS: XALATAN OP SCH (21:08)
[2021-07-12] MEDS: D5 1/2 NS 1,000 ML 1,000 ML IV SCH ×2 (01:25→05:18)
[2021-07-12] MEDS: FLAGYL IV PREMIX 500 MG BAG 500 MG/100 ML BAG IV SCH ×3 (01:30→17:00)
[2021-07-12] MEDS: SPECTAZOLE TOP SCH ×3 (03:01→21:21)
[2021-07-12 04:49] LABS: BASOPHILS % (AUTO) 0.4 % (0.2-1.0); EOSINOPHILS # (AUTO) 0.6 x10^3/uL (0.0-0.2); EOSINOPHILS % (AUTO) 5.3 % (0.9-2.9); HEMATOCRIT 37.1 % (42.0-54.0); HEMOGLOBIN 12.6 g/dL (13.5-18.0); LYMPHOCYTES # (AUTO) 1.4 X10^3/uL (1.3-2.9); LYMPHOCYTES % (AUTO) 12.5 % (21.0-51.0); MEAN CORPUSCULAR HEMOGLOBIN 27.4 pg (27.0-34.0); MEAN CORPUSCULAR HGB CONC 33.9 g/dL (33.0-35.0); MEAN CORPUSCULAR VOLUME 80.8 fL (80.0-100.0); MEAN PLATELET VOLUME 7.9 fL (7.4-11.0); MONOCYTES # (AUTO) 0.7 x10^3/uL (0.3-0.8); MONOCYTES % (AUTO) 6.6 % (0.0-13.0); NEUTROPHILS # (AUTO) 8.2 x10^3/uL (2.2-4.8); NEUTROPHILS % (AUTO) 75.2 % (42.0-75.0); RED BLOOD COUNT 4.59 X10^6/uL (4.7-6.0); RED CELL DISTRIBUTION WIDTH 16.9 % (11.6-16.5); WHITE BLOOD COUNT 10.9 X10^3/uL (3.6-10.0)
[2021-07-12 04:58] LABS: ALANINE AMINOTRANSFERASE 41 Units/L (12-78); ALBUMIN 1.7 g/dL (3.4-5.0); ALKALINE PHOSPHATASE 106 Units/L (46-116); ASPARTATE AMINO TRANSFERASE 24 Units/L (15-37); BLOOD UREA NITROGEN 9 mg/dL (7-18); CALCIUM 8.4 mg/dL (8.5-10.1); CARBON DIOXIDE 25.4 mmol/L (21-32); CHLORIDE 107 mmol/L (98-107); COR CA(FOR HYPOALB) 10.2 mg/dL (8.5-10.1); CREATININE 1.29 mg/dL (0.70-1.30); MAGNESIUM 1.8 mg/dL (1.7-2.9); SODIUM 140 mmol/L (136-145); TOTAL PROTEIN 5.3 g/dL (6.4-8.2); eGFR NON BLACK RACES 56 (>60)
[2021-07-12] MEDS: XOPENEX 1.25 MG/3 ML NEBULE NEB SCH ×3 (05:05→21:20)
[2021-07-12] MEDS: FORTAZ or TAZICEF VIAL INJ 1 G in NS 100 ML IV 100 ML IV SCH ×3 (05:44→21:17)
[2021-07-12] MEDS: SYNTHROID 88 mcg TAB PO SCH (05:44)
--- NOTE | 2021-07-12 06:27 | RAD ---
HISTORYPneumoniaSTUDYChest AP [id number]/01/2022 chest x-ray, CTA chest 07/10/2021FINDINGSHeart size is normal. Patrizia are normal. Lung bruner are free of acute infiltrates. No pleural effusions are identified. There is a hiatal hernia present. Bony thorax is unremarkable.IMPRESSIONNo acute infiltratesHiatal herniaElectronically signed by: CAIO TRUJILLO (July 12, 2021 06:26:13)
[2021-07-12] MEDS: LINZESS PO SCH (08:11)
[2021-07-12] MEDS: CIPRO IV 400 MG PREMIX* 400 MG/200 ML IV.SOLN. IV SCH ×2 (08:11→21:16)
[2021-07-12] MEDS: PREDNISONE TAB 5 MG PO SCH (08:11)
[2021-07-12] MEDS: COLACE CAP 100 MG PO SCH ×2 (08:11→21:19)
[2021-07-12] MEDS: VITAMIN D3 25 mcg (1,000 UNITS) PO SCH (08:12)
[2021-07-12] MEDS: ROBITUSSIN DM PO SCH ×3 (08:12→21:21)
[2021-07-12] MEDS: PriLOSEC PO SCH ×2 (08:12→21:18)
[2021-07-12] MEDS: ASPIRIN 81 MG CHEWTAB PO SCH (08:30)
[2021-07-12] MEDS: PLAVIX PO SCH (08:30)
[2021-07-12] MEDS: VIBRAMYCIN 100 MG in D5W 250 ML IV 250 ML IV SCH (09:30)
--- NOTE | 2021-07-12 15:20 | PCM.PROG ---
Progress Note Progress Note for Day of Date of Exam: 07/12/21 Subjective Subjective: The patient is alert and awake this morning. He reports he is doing better this morning. He does still have some left lower quadrant pain which is still improving overall. He is having some loose bowel movements now but no constipation anymore. His nosebleed he had yesterday has resolved they unpacked it last night. I will start him back on his Plavix and aspirin 81 mg today. Plan we will discharge home tomorrow morning. Past Medical Family Social History Past Med/Fam/Surg Hx: No changes since H&P Allergies: Allergies Penicillins Allergy (Verified 07/09/21 13:12) Review of Systems ROS: No change since H&P Vital Signs and I&O's Vital Signs: Temperature 98.8 F Pulse Rate [Right Brachial] 90 Pulse Rate [Bilateral Radial] 70 Pulse Rate 90 Respiratory Rate 20 Blood Pressure [Right Arm] 122/57 O2 Sat by Pulse Oximetry 95 Intake and Output: Intake & Output 07/10/21 07/11/21 07/12/21 07/13/21 11:59 11:59 11:59 11:59 Intake Total 225 / 225 2019 Output Total 275 / 275 250 / 250 2275 / 2275 Balance -50 / -50 1770 / 1770 -285 / -285 Physical Exam Oriented: Normal, Time, Person and Place Eyes: Normal Ear: Normal Nose: Normal Throat: Normal Respiratory: Normal Cardiovascular: Normal : Normal Auscultation: Bowel Sounds: Decreased Tenderness: LLQ and Other (Decreased tympany and abdominal distention.) Skin: Decreased Turgur and Bruising Musculoskeletal: Normal Psychiatric: Normal Mood Description: Calm Affect: Normal Speech Pattern: Clear and Appropriate Laboratory and Diagnostics Result Diagrams: 07/12/21 04:00 07/12/21 04:00 Labs: 07/09/21 18:31 Blood Blood Culture - Preliminary 07/09/21 18:27 Blood Blood Culture - Preliminary 07/09/21 18:16 Sputum - Expectorated Sputum Sputum Culture - Preliminary 07/09/21 18:16 Sputum - Expectorated Sputum - Final Laboratory WBC 10.9 X10^3/uL (3.6-10.0) H 07/12/21 04:00 RBC 4.59 X10^6/uL (4.7-6.0) L 07/12/21 04:00 Hgb 12.6 g/dL (13.5-18.0) L 07/12/21 04:00 Hct 37.1 % (42.0-54.0) L 07/12/21 04:00 MCV 80.8 fL (80.0-100.0) 07/12/21 04:00 MCH 27.4 pg (27.0-34.0) 07/12/21 04:00 MCHC 33.9 g/dL (33.0-35.0) 07/12/21 04:00 RDW 16.9 % (11.6-16.5) H 07/12/21 04:00 Plt Count 160 X10^3/uL (150.0-450.0) 07/12/21 04:00 MPV 7.9 fL (7.4-11.0) 07/12/21 04:00 Neut % (Auto) 75.2 % (42.0-75.0) H 07/12/21 04:00 Lymph % (Auto) 12.5 % (21.0-51.0) L 07/12/21 04:00 [place] % (Auto) 6.6 % (0.0-13.0) 07/12/21 04:00 Eos % (Auto) 5.3 % (0.9-2.9) H 07/12/21 04:00 Baso % (Auto) 0.4 % (0.2-1.0) 07/12/21 04:00 Neut # (Auto) 8.2 x10^3/uL (2.2-4.8) H 07/12/21 04:00 Lymph # (Auto) 1.4 X10^3/uL (1.3-2.9) 07/12/21 04:00 [place] # (Auto) 0.7 x10^3/uL (0.3-0.8) 07/12/21 04:00 Eos # (Auto) 0.6 x10^3/uL (0.0-0.2) H 07/12/21 04:00 Baso # (Auto) 0.0 X10^3/uL (0.0-0.1) 07/12/21 04:00 Absolute Nucleated RBC 0.0 /100WBC 07/12/21 04:00 Sodium 140 mmol/L (136-145) 07/12/21 04:00 Corrected Sodium TNP 07/12/21 04:00 Potassium 3.3 mmol/L (3.5-5.1) L 07/12/21 04:00 Chloride 107 mmol/L (98-107) 07/12/21 04:00 Carbon Dioxide 25.4 mmol/L (21-32) 07/12/21 04:00 BUN 9 mg/dL (7-18) 07/12/21 04:00 Creatinine 1.29 mg/dL (0.70-1.30) 07/12/21 04:00 Est GFR (MDRD) Af Amer > 60 (>60) 07/12/21 04:00 Est GFR (MDRD) Non-Af 56 (>60) L 07/12/21 04:00 Glucose 92 mg/dL (65-99) 07/12/21 04:00 Calcium 8.4 mg/dL (8.5-10.1) L 07/12/21 04:00 Corrected Calcium 10.2 mg/dL (8.5-10.1) H 07/12/21 04:00 Magnesium 1.8 mg/dL (1.7-2.9) 07/12/21 04:00 Total Bilirubin 0.60 mg/dL (0.2-1.0) 07/12/21 04:00 AST 24 Units/L (15-37) 07/12/21 04:00 ALT 41 Units/L (12-78) 07/12/21 04:00 Alkaline Phosphatase 106 Units/L (46-116) 07/12/21 04:00 Total Protein 5.3 g/dL (6.4-8.2) L 07/12/21 04:00 Albumin 1.7 g/dL (3.4-5.0) L 07/12/21 04:00 Globulin 3.6 g/dL (2.5-4.5) 07/12/21 04:00 Albumin/Globulin Ratio 0.5 Ratio (1.1-2.1) L 07/12/21 04:00 TSH 3rd Generation 0.066 uIU/mL (0.358-3.74) L 07/09/21 13:45 Specimen Type Clean catch urine 07/10/21 00:09 Urine Color Dark yellow (YELLOW) 07/10/21 00:09 Urine Appearance Clear (CLEAR) 07/10/21 00:09 Urine pH 7.0 (5.0 - 8.0) 07/10/21 00:09 Ur Specific [place] 1.005 (1.000-1.030) 07/10/21 00:09 Urine Protein 2+ (NEGATIVE) 07/10/21 00:09 Urine Glucose (UA) Negative (NEGATIVE) 07/10/21 00:09 Urine Ketones Negative (NEGATIVE) 07/10/21 00:09 Urine Blood 1+ (NEGATIVE) 07/10/21 00:09 Urine Nitrite Negative (NEGATIVE) 07/10/21 00:09 Urine Bilirubin Negative (NEGATIVE) 07/10/21 00:09 Urine Urobilinogen 2+ (NORMAL) 07/10/21 00:09 Ur Leukocyte Esterase 1+ (NEGATIVE) 07/10/21 00:09 Urine RBC 0-2 /HPF (0-3) 07/10/21 00:09 Urine WBC 0-2 /HPF (0-5) 07/10/21 00:09 Ur Squamous Epith Cells Rare /HPF (NEGATIVE) 07/10/21 00:09 Urine Bacteria 1+ /HPF (NEGATIVE) 07/10/21 00:09 Ur Culture Indicated? No/not indicated 07/10/21 00:09 Stl C. diff Tox B Gene Negative (NEGATIVE) 07/11/21 18:00 Stl C. diff [id number] Presumptive negative (NEGATIVE) 07/11/21 18:00 SARS-CoV-2 (PCR) Negative (NEGATIVE) 07/09/21 13:20 Plan (1) Hypomagnesemia: Status: Acute Plan: Replace with magnesium. (2) Hypokalemia: Status: Acute Narrative Support Text: Potassium is slightly low this morning we will replace it. Plan: Potassium replacement protocol. (3) Diverticulitis large intestine w/o perforation or abscess w/o bleeding: Status: Acute Plan: CT of the abdomen and pelvis yesterday revealed that he has acute diverticulitis of the descending colon. I will be adding IV Cipro and IV Flagyl today. (4) Abdominal pain: Status: Acute Plan: Soapsuds enema to see if getting his bowels to move will relieve his abdominal distention and pain. I suspect that the patient is most likely impacted with stool. (5) Constipation, chronic: Status: Acute Plan: Continue Linzess 290 mcg by mouth daily. Continue Colace 100 mg by mouth twice a day. (6) Impaction of colon: Status: Resolved Plan: Soapsuds enema 1. May repeat tomorrow morning if his bowels do not start moving on his own. (7) Community acquired pneumonia: Status: Resolved Plan: I started him on protocol on the patient. I put him on IV Fortaz 1 g IV every 8 hours. I am stopping his doxycycline IV today. His chest x-ray this morning shows that his infiltrates have cleared. (8) COPD with asthma: Status: Acute Plan: Xopenex nebs. I may consider adding DuoNeb's tomorrow morning and stop the Xopenex if his O2 sat remains low. I will add Symbicort 160/4.5 2 puffs twice a day. (9) Hypothyroidism: Status: Acute Plan: Continue on levothyroxine 112 mcg daily. 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 Also continue Crestor 20 mg by mouth daily at bedtime. (11) Pulmonary embolism on right: Status: Acute Plan: *Eliquis 5 mg by mouth twice a day. 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 (13) Prostate cancer: Status: Acute Plan: CT scan showed the prostate was enlarged and had exophytic growths on it towards the bladder and towards the cephalad position. 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 The patient has had a history of arteriovenous malformation bleeding in the past. I will go ahead and DC his baby aspirin today since he is already taking Plavix. (15) Dehydration, mild: Status: Resolved Plan: Change IV fluid to KVO this morning. The patient's BUN and creatinine have normalized this morning.
[2021-07-12] MEDS: SINGULAIR TAB 10 MG PO SCH (21:19)
[2021-07-12] MEDS: CRESTOR TAB 10 MG PO SCH (21:20)
[2021-07-12] MEDS: XALATAN OP SCH (21:22)
[2021-07-13] MEDS: FLAGYL IV PREMIX 500 MG BAG 500 MG/100 ML BAG IV SCH ×2 (02:00→08:41)
[2021-07-13 04:55] LABS: BASOPHILS # (AUTO) 0.1 X10^3/uL (0.0-0.1); BASOPHILS % (AUTO) 0.5 % (0.2-1.0); EOSINOPHILS # (AUTO) 0.6 x10^3/uL (0.0-0.2); EOSINOPHILS % (AUTO) 5.4 % (0.9-2.9); HEMATOCRIT 37.7 % (42.0-54.0); HEMOGLOBIN 12.5 g/dL (13.5-18.0); LYMPHOCYTES # (AUTO) 1.2 X10^3/uL (1.3-2.9); LYMPHOCYTES % (AUTO) 10.5 % (21.0-51.0); MEAN CORPUSCULAR HEMOGLOBIN 26.8 pg (27.0-34.0); MEAN CORPUSCULAR HGB CONC 33.2 g/dL (33.0-35.0); MEAN CORPUSCULAR VOLUME 80.5 fL (80.0-100.0); MONOCYTES # (AUTO) 0.7 x10^3/uL (0.3-0.8); MONOCYTES % (AUTO) 6.2 % (0.0-13.0); NEUTROPHILS % (AUTO) 77.4 % (42.0-75.0); RED BLOOD COUNT 4.68 X10^6/uL (4.7-6.0); RED CELL DISTRIBUTION WIDTH 16.9 % (11.6-16.5); WHITE BLOOD COUNT 11.6 X10^3/uL (3.6-10.0)
[2021-07-13] MEDS: XOPENEX 1.25 MG/3 ML NEBULE NEB SCH (05:06)
[2021-07-13 05:07] LABS: ALANINE AMINOTRANSFERASE 31 Units/L (12-78); ALBUMIN 1.8 g/dL (3.4-5.0); ALKALINE PHOSPHATASE 97 Units/L (46-116); ASPARTATE AMINO TRANSFERASE 22 Units/L (15-37); BLOOD UREA NITROGEN 8 mg/dL (7-18); CALCIUM 8.4 mg/dL (8.5-10.1); CARBON DIOXIDE 23.2 mmol/L (21-32); CHLORIDE 107 mmol/L (98-107); COR CA(FOR HYPOALB) 10.2 mg/dL (8.5-10.1); CREATININE 1.21 mg/dL (0.70-1.30); MAGNESIUM 1.7 mg/dL (1.7-2.9); SODIUM 138 mmol/L (136-145); TOTAL PROTEIN 5.4 g/dL (6.4-8.2); eGFR NON BLACK RACES > 60 (>60)
[2021-07-13] MEDS: FORTAZ or TAZICEF VIAL INJ 1 G in NS 100 ML IV 100 ML IV SCH (05:42)
[2021-07-13] MEDS: K-DUR TAB 20 MEQ PO PRN (05:42)
[2021-07-13] MEDS: SYNTHROID 88 mcg TAB PO SCH (05:42)
[2021-07-13] MEDS: MAGNESIUM SULFATE 1 GRAM/100 mL PREMIX 1 G/100 ML BAG IV PRN ×2 (06:30→08:41)
[2021-07-13] MEDS: ROBITUSSIN DM PO SCH ×3 (07:27→08:23)
[2021-07-13] MEDS: D5 1/2 NS 1,000 ML 1,000 ML IV SCH (08:20)
[2021-07-13] MEDS: COLACE CAP 100 MG PO SCH (08:21)
[2021-07-13] MEDS: ASPIRIN 81 MG CHEWTAB PO SCH (08:21)
[2021-07-13] MEDS: LINZESS PO SCH (08:21)
[2021-07-13] MEDS: PLAVIX PO SCH (08:22)
[2021-07-13] MEDS: PriLOSEC PO SCH (08:23)
[2021-07-13] MEDS: PREDNISONE TAB 5 MG PO SCH (08:23)
[2021-07-13] MEDS: CIPRO IV 400 MG PREMIX* 400 MG/200 ML IV.SOLN. IV SCH (08:40)
[2021-07-13] MEDS: SPECTAZOLE TOP SCH (08:49)
[2021-07-13 09:01] VITALS: BP 112/79
[2021-07-17] MEDS ORDERED: ELIQUIS PO SCH (11:32)
--- NOTE | 2021-09-13 20:22 | PCM.DCPLAN ---
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 Hypomagnesemia resolved 2. Hypokalemia resolved 3. Chronic diverticulosis of large intestine 4. Abdominal pain resolved 5. Chronic constipation 6. Colon infection resolved 7. Community-acquired pneumonia resolving 8. COPD with asthma stable 9. Chronic hypothyroidism 10. History of CVA without residual deficits 11. Right-sided l pulmonary embolism 12. Iatrogenic hyperthyroidism 13. Prostate cancer Discharge Medications Discharge Medications: Home Medication List aspirin 81 mg tablet,delayed release 81 mg PO DAILY 07/09/21 [History] clopidogrel 75 mg tablet (Plavix) 75 mg PO DAILY 07/09/21 [History] latanoprost 0.005 % eye drops (Xalatan) 1 drp ophthalmic (eye) HS 07/09/21 [History] rosuvastatin 20 mg tablet (Crestor) 20 mg PO HS 07/09/21 [History] docusate sodium 100 mg capsule (Colace) 100 mg PO BID #60 caps 07/13/21 [Rx] Prescriptions: docusate sodium [Colace] ZACKARY BLACK Hospital Course Vital Signs: Temperature 98.1 F Pulse Rate [Bilateral Radial] 92 Pulse Rate 71 Respiratory Rate 20 Blood Pressure [Right Arm] 112/79 O2 Sat by Pulse Oximetry 97 Latest Lab Results: Laboratory Last Values WBC 11.6 X10^3/uL (3.6-10.0) H 07/13/21 04:40 RBC 4.68 X10^6/uL (4.7-6.0) L 07/13/21 04:40 Hgb 12.5 g/dL (13.5-18.0) L 07/13/21 04:40 Hct 37.7 % (42.0-54.0) L 07/13/21 04:40 MCV 80.5 fL (80.0-100.0) 07/13/21 04:40 MCH 26.8 pg (27.0-34.0) L 07/13/21 04:40 MCHC 33.2 g/dL (33.0-35.0) 07/13/21 04:40 RDW 16.9 % (11.6-16.5) H 07/13/21 04:40 Plt Count 169 X10^3/uL (150.0-450.0) 07/13/21 04:40 MPV 8.0 fL (7.4-11.0) 07/13/21 04:40 Neut % (Auto) 77.4 % (42.0-75.0) H 07/13/21 04:40 Lymph % (Auto) 10.5 % (21.0-51.0) L 07/13/21 04:40 [place] % (Auto) 6.2 % (0.0-13.0) 07/13/21 04:40 Eos % (Auto) 5.4 % (0.9-2.9) H 07/13/21 04:40 Baso % (Auto) 0.5 % (0.2-1.0) 07/13/21 04:40 Neut # (Auto) 9.0 x10^3/uL (2.2-4.8) H 07/13/21 04:40 Lymph # (Auto) 1.2 X10^3/uL (1.3-2.9) L 07/13/21 04:40 [place] # (Auto) 0.7 x10^3/uL (0.3-0.8) 07/13/21 04:40 Eos # (Auto) 0.6 x10^3/uL (0.0-0.2) H 07/13/21 04:40 Baso # (Auto) 0.1 X10^3/uL (0.0-0.1) 07/13/21 04:40 Absolute Nucleated RBC 0.0 /100WBC 07/13/21 04:40 Sodium 138 mmol/L (136-145) 07/13/21 04:40 Corrected Sodium TNP 07/13/21 04:40 Potassium 3.3 mmol/L (3.5-5.1) L 07/13/21 04:40 Chloride 107 mmol/L (98-107) 07/13/21 04:40 Carbon Dioxide 23.2 mmol/L (21-32) 07/13/21 04:40 BUN 8 mg/dL (7-18) 07/13/21 04:40 Creatinine 1.21 mg/dL (0.70-1.30) 07/13/21 04:40 Est GFR (MDRD) Af Amer > 60 (>60) 07/13/21 04:40 Est GFR (MDRD) Non-Af > 60 (>60) 07/13/21 04:40 Glucose 100 mg/dL (65-99) H 07/13/21 04:40 Calcium 8.4 mg/dL (8.5-10.1) L 07/13/21 04:40 Corrected Calcium 10.2 mg/dL (8.5-10.1) H 07/13/21 04:40 Magnesium 1.7 mg/dL (1.7-2.9) 07/13/21 04:40 Total Bilirubin 0.50 mg/dL (0.2-1.0) 07/13/21 04:40 AST 22 Units/L (15-37) 07/13/21 04:40 ALT 31 Units/L (12-78) 07/13/21 04:40 Alkaline Phosphatase 97 Units/L (46-116) 07/13/21 04:40 Total Protein 5.4 g/dL (6.4-8.2) L 07/13/21 04:40 Albumin 1.8 g/dL (3.4-5.0) L 07/13/21 04:40 Globulin 3.6 g/dL (2.5-4.5) 07/13/21 04:40 Albumin/Globulin Ratio 0.5 Ratio (1.1-2.1) L 07/13/21 04:40 TSH 3rd Generation 0.066 uIU/mL (0.358-3.74) L 07/09/21 13:45 Specimen Type Clean catch urine 07/10/21 00:09 Urine Color Dark yellow (YELLOW) 07/10/21 00:09 Urine Appearance Clear (CLEAR) 07/10/21 00:09 Urine pH 7.0 (5.0 - 8.0) 07/10/21 00:09 Ur Specific [place] 1.005 (1.000-1.030) 07/10/21 00:09 Urine Protein 2+ (NEGATIVE) 07/10/21 00:09 Urine Glucose (UA) Negative (NEGATIVE) 07/10/21 00:09 Urine Ketones Negative (NEGATIVE) 07/10/21 00:09 Urine Blood 1+ (NEGATIVE) 07/10/21 00:09 Urine Nitrite Negative (NEGATIVE) 07/10/21 00:09 Urine Bilirubin Negative (NEGATIVE) 07/10/21 00:09 Urine Urobilinogen 2+ (NORMAL) 07/10/21 00:09 Ur Leukocyte Esterase 1+ (NEGATIVE) 07/10/21 00:09 Urine RBC 0-2 /HPF (0-3) 07/10/21 00:09 Urine WBC 0-2 /HPF (0-5) 07/10/21 00:09 Ur Squamous Epith Cells Rare /HPF (NEGATIVE) 07/10/21 00:09 Urine Bacteria 1+ /HPF (NEGATIVE) 07/10/21 00:09 Ur Culture Indicated? No/not indicated 07/10/21 00:09 Stl C. diff Tox B Gene Negative (NEGATIVE) 07/11/21 18:00 Stl C. diff [id number] Presumptive negative (NEGATIVE) 07/11/21 18:00 SARS-CoV-2 (PCR) Negative (NEGATIVE) 07/09/21 13:20 Hospital Course: The patient remained weak and tired over the next several days after admission. CT scans of the abdomen revealed advanced diverticular Kalosis and a very large prostate with a growth towards the bladder. The CT scan also showed a pulmonary embolism in the right lung which is fairly large. We contemplated starting him on Eliquis but given his history of GI bleeds secondary to arteriovenous malformations in the past we decided at this point given all his chronic medical problems and age he would not be worth the risk. Continue him on IV antibiotics for his pneumonia and he will his levothyroxine for the iatrogenic hypothyroidism. Slowly the patient began to recover some of his strength and started eating better. The number of enemas his bowels are moving better. His appetite improved towards the middle and later parts of his hospital stay and I reported to the family that this was a good sign. By the fifth hospital day he was better and ready to go home. He was discharged home on Monday, 13 Jul 2021 in stable condition. He was instructed to resume his home meds and I decrease his levothyroxine dose. I will be following up with him within a week as outpatient.
== END 2021-07-13 10:10 | disposition home or self-care (01) | DRG 175 ==
LOC: MED/SURG
PROVIDERS: ADMIT Family Medicine; ATTEND Family Medicine
DX: C61 Malignant neoplasm of prostate; J18.8 Other pneumonia, unspecified organism; Z20.822 Contact with and (suspected) exposure to COVID-19; K57.32 Diverticulitis of large intestine without perforation or abscess without bleeding; R04.0 Epistaxis; I26.99 Other pulmonary embolism without acute cor pulmonale; E87.6 Hypokalemia; R10.84 Generalized abdominal pain; K56.49 Other impaction of intestine; E03.8 Other specified hypothyroidism; E83.42 Hypomagnesemia; E86.0 Dehydration; J44.9 Chronic obstructive pulmonary disease, unspecified; Z86.73 Personal history of transient ischemic attack (TIA), and cerebral infarction without residual deficits; K55.20 Angiodysplasia of colon without hemorrhage; B37.89 Other sites of candidiasis; K59.09 Other constipation; E05.80 Other thyrotoxicosis without thyrotoxic crisis or storm